=== PATIENT | male | born 1935 | race Caucasian/White ===

== ENCOUNTER 2021-10-20 13:23 | Inpatient (IN) ==
[2021-10-20] MEDS ORDERED: Vancomycin 1,000 MG VIAL IVPB ONE (15:36)
[2021-10-20] MEDS ORDERED: Piperacillin/Tazobactam 3.375 GM in 0.9 % Sodium Chloride Mini Bag 100 ML IVPB ONE (15:43)
[2021-10-20] MEDS ORDERED: Vancomycin 1,500 MG/265 ML IV.SOLN IVPB ONE (16:25)
[2021-10-20 16:39] LABS: Basophils % 0.2 %; Eosinophils % 0.1 %; Hematocrit 36.2 % (37.5-50.1); Hemoglobin 10.7 g/dL (12.9-16.9); Immature Granulocytes % 1.2 % (0-4); Lymphocytes # 0.4 K/mcL (0.6-4.6); Lymphocytes % 3.2 %; Mean Corpuscular HGB Conc 29.6 g/dL (31.6-35.5); Mean Corpuscular Hemoglobin 25.6 pg (28.0-33.3); Mean Corpuscular Volume 86.6 fL (83.0-100.0); Monocytes # 0.7 K/mcL (0.0-1.3); Monocytes % 6.1 %; Neutrophils # 10.4 K/mcL (1.6-8.9); Platelet Count 250 K/mcL (140-400); Red Blood Count 4.18 M/mcL (4.19-5.50); Red Cell Distribution Width 14.7 % (11.5-14.5); Segmented Neutrophils % 89.2 %; White Blood Count 11.6 K/mcL (4.3-11.1)
[2021-10-20 17:01] LABS: Albumin 3.2 g/dL (3.5-5.7); Bilirubin,Total 0.4 mg/dL (0.3-1.0); Calcium 8.5 mg/dL (8.6-10.3); Globulin 3.1 g/dL (2.4-3.5); Total Protein 6.3 g/dL (6.4-8.9)
[2021-10-20] MEDS ORDERED: *HR* OxyCODONE Immed Rel 5 MG TABLET PO PRN (18:12)
[2021-10-20] MEDS ORDERED: polyethylene glycoL 3350 17 GM POWD.PACK PO PRN (18:12)
[2021-10-20] MEDS ORDERED: Melatonin 3 MG TABLET PO PRN (18:12)
[2021-10-20] MEDS ORDERED: Ondansetron 4 MG/2 ML VIAL IVP PRN (18:13)
[2021-10-20] MEDS ORDERED: Naloxone 0.4 MG/ML INJ IVP PRN (18:13)
[2021-10-20 19:22] LABS: INR 2.4; Prothrombin Time 26.7 Seconds (9.4-12.1)
[2021-10-21] MEDS: Piperacillin/Tazobactam 3.375 GM in 0.9 % Sodium Chloride Mini Bag 100 ML IVPB SCH ×3 (01:03→16:56)
[2021-10-21 02:50] LABS: Hematocrit 31.2 % (37.5-50.1); Hemoglobin 9.5 g/dL (12.9-16.9); Mean Corpuscular HGB Conc 30.4 g/dL (31.6-35.5); Mean Corpuscular Hemoglobin 25.4 pg (28.0-33.3); Mean Corpuscular Volume 83.4 fL (83.0-100.0); Mean Platelet Volume 9.8 fL (9.4-12.4); Platelet Count 238 K/mcL (140-400); Red Blood Count 3.74 M/mcL (4.19-5.50); Red Cell Distribution Width 14.9 % (11.5-14.5); White Blood Count 10.4 K/mcL (4.3-11.1)
[2021-10-21 02:54] LABS: INR 2.4
[2021-10-21 03:04] LABS: Calcium 8.2 mg/dL (8.6-10.3); Magnesium 2.1 mg/dL (1.6-2.6)
[2021-10-21] MEDS: Aspirin 81 MG TAB.CHEW PO SCH (09:37)
[2021-10-21] MEDS: Finasteride 5 MG TABLET PO SCH (09:37)
[2021-10-21] MEDS: Furosemide 20 MG TABLET PO SCH (09:37)
[2021-10-21] MEDS: Acetaminophen 325 MG TABLET PO PRN (19:29)
[2021-10-22] MEDS: Piperacillin/Tazobactam 3.375 GM in 0.9 % Sodium Chloride Mini Bag 100 ML IVPB SCH ×4 (00:04→23:20)
[2021-10-22 06:06] LABS: Hematocrit 30.7 % (37.5-50.1); Mean Corpuscular HGB Conc 29.3 g/dL (31.6-35.5); Mean Corpuscular Hemoglobin 25.1 pg (28.0-33.3); Mean Corpuscular Volume 85.8 fL (83.0-100.0); Mean Platelet Volume 10.2 fL (9.4-12.4); Platelet Count 206 K/mcL (140-400); Red Blood Count 3.58 M/mcL (4.19-5.50); Red Cell Distribution Width 14.8 % (11.5-14.5); White Blood Count 8.1 K/mcL (4.3-11.1)
[2021-10-22 06:19] LABS: INR 2.1; Prothrombin Time 23.4 Seconds (9.4-12.1)
[2021-10-22 06:27] LABS: Calcium 8.3 mg/dL (8.6-10.3)
[2021-10-22] MEDS: Acetaminophen 325 MG TABLET PO PRN ×2 (08:44→17:53)
[2021-10-22] MEDS: Finasteride 5 MG TABLET PO SCH (08:45)
[2021-10-22] MEDS: Furosemide 20 MG TABLET PO SCH (08:45)
[2021-10-22] MEDS: Aspirin 81 MG TAB.CHEW PO SCH (08:45)
[2021-10-22] MEDS ORDERED: *HR* Heparin 5,000 UNIT/ML VIAL IVP PRN ×4 (08:52→12:02)
[2021-10-22] MEDS ORDERED: Heparin 25,000UNIT/250ML 1/2NS 25,000 UNIT/250 ML IV.SOLN IVC SCH (09:00)
[2021-10-22 09:10] LABS: A.calcoaceticus-baumannii cplx Not Detected (Not Detect); Bacteroides fragilis by PCR Not Detected (Not Detect); Enterobacter cloacae Cmplx PCR Not Detected (Not Detect); Enterococcus faecalis by PCR Not Detected (Not Detect); Enterococcus faecium by PCR Not Detected (Not Detect); Staph epidermidis by PCR DETECTED (Not Detect); Staph lugdunensis by PCR Not Detected (Not Detect); Staphylococcus aureus by PCR Not Detected (Not Detect); Streptococcus agalactiae(B)PCR Not Detected (Not Detect); Streptococcus by PCR Not Detected (Not Detect); Streptococcus pneumoniae PCR Not Detected (Not Detect); Streptococcus pyogenes (A) PCR Not Detected (Not Detect); mecA/C Methicillin-Resist Gene Not Detected (Not Detect)
[2021-10-22 09:11] LABS: Candida albicans by PCR Not Detected (Not Detect); Candida auris by PCR Not Detected (Not Detect); Candida glabrata by PCR Not Detected (Not Detect); Candida krusei by PCR Not Detected (Not Detect); Candida parapsilosis by PCR Not Detected (Not Detect); Candida tropicalis by PCR Not Detected (Not Detect); Crypto. neoformans/gattii PCR Not Detected (Not Detect); Enterobacterales by PCR Not Detected (Not Detect); Escherichia coli by PCR Not Detected (Not Detect); Klebs. pneumoniae group by PCR Not Detected (Not Detect); Klebsiella aerogenes by PCR Not Detected (Not Detect); Klebsiella oxytoca by PCR Not Detected (Not Detect); Proteus by PCR Not Detected (Not Detect); Pseudomonas aeruginosa by PCR Not Detected (Not Detect); Salmonella species by PCR Not Detected (Not Detect); Serratia marcescens by PCR Not Detected (Not Detect); Stenotrophomonas maltophilia Not Detected (Not Detect)
[2021-10-22] MEDS ORDERED: Lidocaine -MPF 2% 2 ML VIAL ONE (10:01)
[2021-10-22] MEDS ORDERED: *HR* Propofol 200 MG/20 ML VIAL IVP ONE (10:01)
[2021-10-22] MEDS ORDERED: *HR* FentaNYL (PF) 100 MCG/2 ML VIAL IVP PRN ×2 (10:22→12:02)
[2021-10-22] MEDS ORDERED: polyethylene glycoL 3350 17 GM POWD.PACK PO PRN (12:02)
[2021-10-22] MEDS ORDERED: Naloxone 0.4 MG/ML INJ IVP PRN (12:02)
[2021-10-22] MEDS ORDERED: Melatonin 3 MG TABLET PO PRN (12:02)
[2021-10-22] MEDS ORDERED: Ondansetron 4 MG/2 ML VIAL IVP PRN (12:02)
[2021-10-22 13:25] LABS: Prothrombin Time 21.9 Seconds (9.4-12.1)
[2021-10-22 13:28] LABS: Heparin anti-factor XA UFH < 0.04 IU/mL (0.30-0.70)
[2021-10-22] MEDS: Heparin 25,000UNIT/250ML 1/2NS 25,000 UNIT/250 ML IV.SOLN IVC SCH (13:55)
[2021-10-22] MEDS ORDERED: *HR* Warfarin 2.5 MG TABLET PO ONE (18:00)
[2021-10-22] MEDS ORDERED: Warfarin perPT PO PRN (18:00)
[2021-10-22] MEDS ORDERED: Vancomycin 1,250 MG/262.5 ML IV.SOLN IVPB ONE (18:30)
[2021-10-23] MEDS: Acetaminophen 325 MG TABLET PO PRN (00:14)
[2021-10-23 04:38] LABS: Hematocrit 28.8 % (37.5-50.1); Hemoglobin 8.5 g/dL (12.9-16.9); Mean Corpuscular HGB Conc 29.5 g/dL (31.6-35.5); Mean Corpuscular Hemoglobin 25.1 pg (28.0-33.3); Mean Corpuscular Volume 85.2 fL (83.0-100.0); Mean Platelet Volume 10.6 fL (9.4-12.4); Platelet Count 197 K/mcL (140-400); Red Blood Count 3.38 M/mcL (4.19-5.50); White Blood Count 8.8 K/mcL (4.3-11.1)
[2021-10-23 04:43] LABS: Calcium 7.8 mg/dL (8.6-10.3); Potassium 3.9 mEq/L (3.5-5.1)
[2021-10-23 04:46] LABS: Prothrombin Time 22.4 Seconds (9.4-12.1)
[2021-10-23] MEDS: Finasteride 5 MG TABLET PO SCH (09:48)
[2021-10-23] MEDS: Furosemide 20 MG TABLET PO SCH (09:49)
[2021-10-23] MEDS: Aspirin 81 MG TAB.CHEW PO SCH (09:49)
[2021-10-23] MEDS: Piperacillin/Tazobactam 3.375 GM in 0.9 % Sodium Chloride Mini Bag 100 ML IVPB SCH ×2 (09:50→17:24)
[2021-10-23] MEDS: Heparin 25,000UNIT/250ML 1/2NS 25,000 UNIT/250 ML IV.SOLN IVC SCH ×3 (12:09→18:28)
[2021-10-23] MEDS ORDERED: *HR* Warfarin 3 MG TABLET PO ONE (18:00)
[2021-10-23] MEDS ORDERED: Vancomycin 1,250 MG/262.5 ML IV.SOLN IVPB ONE (18:00)
[2021-10-24] MEDS: Piperacillin/Tazobactam 3.375 GM in 0.9 % Sodium Chloride Mini Bag 100 ML IVPB SCH (00:15)
[2021-10-24 05:17] LABS: INR 2.1; Prothrombin Time 23.4 Seconds (9.4-12.1)
[2021-10-24] MEDS: Aspirin 81 MG TAB.CHEW PO SCH (09:26)
[2021-10-24] MEDS: Furosemide 20 MG TABLET PO SCH (09:26)
[2021-10-24] MEDS: Finasteride 5 MG TABLET PO SCH (09:26)
[2021-10-24] MEDS: ceFAZolin 2,000 MG in 0.9 % Sodium Chloride 100 ML IVPB SCH ×3 (09:27→23:52)
[2021-10-24] MEDS: Heparin 25,000UNIT/250ML 1/2NS 25,000 UNIT/250 ML IV.SOLN IVC SCH (16:19)
[2021-10-24] MEDS ORDERED: *HR* Warfarin 3 MG TABLET PO ONE (18:00)
[2021-10-25 05:28] LABS: Hematocrit 27.9 % (37.5-50.1); Hemoglobin 8.2 g/dL (12.9-16.9); Mean Corpuscular HGB Conc 29.4 g/dL (31.6-35.5); Mean Corpuscular Volume 85.1 fL (83.0-100.0); Mean Platelet Volume 10.2 fL (9.4-12.4); Platelet Count 182 K/mcL (140-400); Red Blood Count 3.28 M/mcL (4.19-5.50); Red Cell Distribution Width 15.1 % (11.5-14.5); White Blood Count 7.1 K/mcL (4.3-11.1)
[2021-10-25 05:36] LABS: INR 2.3; Prothrombin Time 25.2 Seconds (9.4-12.1)
[2021-10-25 05:48] LABS: Calcium 7.9 mg/dL (8.6-10.3); Potassium 3.4 mEq/L (3.5-5.1)
[2021-10-25] MEDS: Aspirin 81 MG TAB.CHEW PO SCH (09:15)
[2021-10-25] MEDS: ceFAZolin 2,000 MG in 0.9 % Sodium Chloride 100 ML IVPB SCH (09:15)
[2021-10-25] MEDS: Furosemide 20 MG TABLET PO SCH (09:15)
[2021-10-25] MEDS: Finasteride 5 MG TABLET PO SCH (09:16)
[2021-10-25] MEDS ORDERED: *HR* Warfarin 3 MG TABLET PO ONE (18:00)
[2021-10-25] MEDS: CeFAZolin 2,000 MG/120 ML BAG IVPB SCH (21:09)
[2021-10-26 05:27] LABS: Prothrombin Time 22.2 Seconds (9.4-12.1)
[2021-10-26] MEDS: Aspirin 81 MG TAB.CHEW PO SCH (09:20)
[2021-10-26] MEDS: Finasteride 5 MG TABLET PO SCH (09:20)
[2021-10-26] MEDS: Furosemide 20 MG TABLET PO SCH (09:20)
[2021-10-26] MEDS: CeFAZolin 2,000 MG/120 ML BAG IVPB SCH ×2 (09:21→20:09)
[2021-10-26] MEDS ORDERED: *HR* Warfarin 5 MG TABLET PO ONE (18:00)
[2021-10-27 03:36] LABS: Hematocrit 27.1 % (37.5-50.1); Hemoglobin 7.9 g/dL (12.9-16.9); Mean Corpuscular HGB Conc 29.2 g/dL (31.6-35.5); Mean Corpuscular Hemoglobin 24.8 pg (28.0-33.3); Mean Platelet Volume 10.5 fL (9.4-12.4); Platelet Count 176 K/mcL (140-400); Red Blood Count 3.19 M/mcL (4.19-5.50); White Blood Count 7.8 K/mcL (4.3-11.1)
[2021-10-27 03:44] LABS: INR 2.2
[2021-10-27 03:57] LABS: BUN/Creatinine Ratio 17 (6-26); Blood Urea Nitrogen 21 mg/dL (8-23); Calcium 7.9 mg/dL (8.6-10.3); Carbon Dioxide 27 mEq/L (23-29); Chloride 105 mEq/L (98-107); Glucose 115 mg/dL (70-105); Osmolality,Calculated 292 (280-300); Potassium 3.6 mEq/L (3.5-5.1); Sodium 139 mEq/L (136-145); eGFR For African Americans > 60 (> 60); eGFR For Non-African Americans 54 (> 60)
[2021-10-27] MEDS: Finasteride 5 MG TABLET PO SCH (09:17)
[2021-10-27] MEDS: Aspirin 81 MG TAB.CHEW PO SCH (09:17)
[2021-10-27] MEDS: Furosemide 20 MG TABLET PO SCH (09:17)
[2021-10-27] MEDS ORDERED: *HR* Midazolam HCl 2 MG/2 ML VIAL ONE (09:57)
[2021-10-27] MEDS ORDERED: IOPAMIDOL ONE (09:58)
[2021-10-27] MEDS ORDERED: *HR* Heparin 10,000 UNIT/10 ML VIAL ONE (09:58)
[2021-10-27] MEDS ORDERED: 0.9 % Sodium Chloride 2,000 ML ONE (09:58)
[2021-10-27] MEDS ORDERED: Heparin 1,000 UNITS/500 mL 500 ML ONE (09:58)
[2021-10-27] MEDS ORDERED: Perflutren Lipid Microsphere 1.3 ML in 0.9 % Sodium Chloride 8.7 ML IVP PRN (11:00)
[2021-10-27] MEDS: CeFAZolin 2,000 MG/120 ML BAG IVPB SCH ×2 (11:57→20:33)
[2021-10-27] MEDS ORDERED: *HR* Warfarin 5 MG TABLET PO ONE (18:00)
[2021-10-28 06:01] LABS: Red Blood Count 3.43 M/mcL (4.19-5.50); White Blood Count 7.7 K/mcL (4.3-11.1)
[2021-10-28 06:02] LABS: Hematocrit 29.7 % (37.5-50.1); Hemoglobin 8.7 g/dL (12.9-16.9); Mean Corpuscular HGB Conc 29.3 g/dL (31.6-35.5); Mean Corpuscular Hemoglobin 25.4 pg (28.0-33.3); Mean Corpuscular Volume 86.6 fL (83.0-100.0); Mean Platelet Volume 9.8 fL (9.4-12.4); Platelet Count 174 K/mcL (140-400); Red Cell Distribution Width 15.5 % (11.5-14.5)
[2021-10-28 06:04] LABS: INR 2.5; Prothrombin Time 27.3 Seconds (9.4-12.1)
[2021-10-28 07:07] LABS: BUN/Creatinine Ratio 18 (6-26); Blood Urea Nitrogen 23 mg/dL (8-23); Carbon Dioxide 26 mEq/L (23-29); Chloride 102 mEq/L (98-107); Glucose 148 mg/dL (70-105); Osmolality,Calculated 288 (280-300); Potassium 3.7 mEq/L (3.5-5.1); Sodium 136 mEq/L (136-145); eGFR For African Americans > 60 (> 60); eGFR For Non-African Americans 52 (> 60)
[2021-10-28] MEDS: Furosemide 20 MG TABLET PO SCH (09:29)
[2021-10-28] MEDS: Aspirin 81 MG TAB.CHEW PO SCH (09:29)
[2021-10-28] MEDS: Finasteride 5 MG TABLET PO SCH (09:29)
[2021-10-28] MEDS: CeFAZolin 2,000 MG/120 ML BAG IVPB SCH ×2 (09:36→21:17)
[2021-10-28] MEDS ORDERED: *HR* Warfarin 4 MG TABLET PO ONE (18:00)
[2021-10-28] MEDS: cilostazoL 100 MG TABLET PO SCH (21:16)
[2021-10-29 04:21] LABS: Hematocrit 27.7 % (37.5-50.1); Hemoglobin 8.3 g/dL (12.9-16.9); Mean Corpuscular Hemoglobin 25.5 pg (28.0-33.3); Mean Platelet Volume 10.5 fL (9.4-12.4); Platelet Count 180 K/mcL (140-400); Red Blood Count 3.26 M/mcL (4.19-5.50); Red Cell Distribution Width 15.3 % (11.5-14.5); White Blood Count 7.7 K/mcL (4.3-11.1)
[2021-10-29 04:28] LABS: INR 2.9; Prothrombin Time 31.7 Seconds (9.4-12.1)
[2021-10-29 04:34] LABS: BUN/Creatinine Ratio 19 (6-26); Blood Urea Nitrogen 25 mg/dL (8-23); Carbon Dioxide 27 mEq/L (23-29); Chloride 103 mEq/L (98-107); Glucose 136 mg/dL (70-105); Osmolality,Calculated 290 (280-300); Potassium 3.5 mEq/L (3.5-5.1); Sodium 137 mEq/L (136-145); eGFR For African Americans > 60 (> 60); eGFR For Non-African Americans 50 (> 60)
[2021-10-29] MEDS: cilostazoL 100 MG TABLET PO SCH ×2 (07:38→21:44)
[2021-10-29] MEDS: Finasteride 5 MG TABLET PO SCH (07:38)
[2021-10-29] MEDS: Aspirin 81 MG TAB.CHEW PO SCH (07:38)
[2021-10-29] MEDS: Acetaminophen 325 MG TABLET PO PRN (07:38)
[2021-10-29] MEDS: Furosemide 20 MG TABLET PO SCH (07:38)
[2021-10-29] MEDS: CeFAZolin 2,000 MG/120 ML BAG IVPB SCH ×2 (09:53→21:45)
[2021-10-29] MEDS ORDERED: Lidocaine -MPF 2% 2 ML VIAL ONE (12:50)
[2021-10-29] MEDS ORDERED: *HR* Propofol 200 MG/20 ML VIAL IVP ONE ×2 (12:50)
[2021-10-29] MEDS ORDERED: Melatonin 3 MG TABLET PO PRN (14:28)
[2021-10-29] MEDS ORDERED: polyethylene glycoL 3350 17 GM POWD.PACK PO PRN (14:28)
[2021-10-29] MEDS ORDERED: Ondansetron 4 MG/2 ML VIAL IVP PRN (14:28)
[2021-10-29] MEDS ORDERED: Naloxone 0.4 MG/ML INJ IVP PRN (14:28)
[2021-10-29] MEDS ORDERED: Perflutren Lipid Microsphere 1.3 ML in 0.9 % Sodium Chloride 8.7 ML IVP PRN (14:28)
[2021-10-29] MEDS ORDERED: Warfarin perPT PO PRN (18:00)
[2021-10-29] MEDS ORDERED: *HR* Warfarin 3 MG TABLET PO ONE ×2 (18:00)
[2021-10-30 05:56] LABS: Basophils % 0.4 %; Eosinophils # 0.2 K/mcL (0.0-0.6); Eosinophils % 3.2 %; Hematocrit 25.9 % (37.5-50.1); Hemoglobin 7.8 g/dL (12.9-16.9); Immature Granulocytes % 0.9 % (0-4); Lymphocytes # 0.5 K/mcL (0.6-4.6); Lymphocytes % 6.9 %; Mean Corpuscular HGB Conc 30.1 g/dL (31.6-35.5); Mean Corpuscular Hemoglobin 25.5 pg (28.0-33.3); Mean Corpuscular Volume 84.6 fL (83.0-100.0); Monocytes # 0.6 K/mcL (0.0-1.3); Monocytes % 8.5 %; Neutrophils # 5.5 K/mcL (1.6-8.9); Platelet Count 155 K/mcL (140-400); Red Blood Count 3.06 M/mcL (4.19-5.50); Red Cell Distribution Width 15.2 % (11.5-14.5); Segmented Neutrophils % 80.1 %; White Blood Count 6.8 K/mcL (4.3-11.1)
[2021-10-30 06:03] LABS: INR 3.5; Prothrombin Time 38.9 Seconds (9.4-12.1)
[2021-10-30 06:22] LABS: BUN/Creatinine Ratio 16 (6-26); Blood Urea Nitrogen 21 mg/dL (8-23); Carbon Dioxide 30 mEq/L (23-29); Chloride 103 mEq/L (98-107); Glucose 88 mg/dL (70-105); Osmolality,Calculated 286 (280-300); Potassium 3.8 mEq/L (3.5-5.1); Sodium 137 mEq/L (136-145); eGFR For African Americans > 60 (> 60); eGFR For Non-African Americans 53 (> 60)
[2021-10-30] MEDS ORDERED: Furosemide 20 MG TABLET PO SCH (09:00)
[2021-10-30] MEDS: Aspirin 81 MG TAB.CHEW PO SCH (11:05)
[2021-10-30] MEDS: Finasteride 5 MG TABLET PO SCH (11:05)
[2021-10-30] MEDS: CeFAZolin 2,000 MG/120 ML BAG IVPB SCH ×2 (11:06→20:24)
[2021-10-30] MEDS: cilostazoL 100 MG TABLET PO SCH ×2 (11:06→20:19)
[2021-10-30] MEDS ORDERED: *HR* Warfarin 1 MG TABLET PO ONE (18:00)
[2021-10-31 02:49] LABS: Basophils % 0.3 %; Eosinophils # 0.2 K/mcL (0.0-0.6); Hematocrit 25.7 % (37.5-50.1); Hemoglobin 7.6 g/dL (12.9-16.9); Immature Granulocytes % 0.9 % (0-4); Lymphocytes # 0.5 K/mcL (0.6-4.6); Lymphocytes % 7.9 %; Mean Corpuscular HGB Conc 29.6 g/dL (31.6-35.5); Mean Corpuscular Hemoglobin 25.2 pg (28.0-33.3); Mean Corpuscular Volume 85.1 fL (83.0-100.0); Mean Platelet Volume 9.5 fL (9.4-12.4); Monocytes # 0.6 K/mcL (0.0-1.3); Monocytes % 8.6 %; Neutrophils # 5.1 K/mcL (1.6-8.9); Platelet Count 161 K/mcL (140-400); Red Blood Count 3.02 M/mcL (4.19-5.50); Red Cell Distribution Width 15.1 % (11.5-14.5); Segmented Neutrophils % 79.3 %; White Blood Count 6.4 K/mcL (4.3-11.1)
[2021-10-31 02:57] LABS: INR 3.3; Prothrombin Time 36.2 Seconds (9.4-12.1)
[2021-10-31 03:34] LABS: Folate 11.5 ng/mL (3.0-16.0)
[2021-10-31 03:47] LABS: % Iron Saturation 8 % (20-55); Alanine Aminotransferase < 3 Units/L (7-52); Albumin 2.8 g/dL (3.5-5.7); Albumin/Globulin Ratio 1.1 (1.1-2.2); Alkaline Phosphatase 54 Units/L (34-104); Aspartate Amino Transferase 9 Units/L (13-39); BUN/Creatinine Ratio 15 (6-26); Bilirubin,Indirect 0.3 mg/dL (0.0-1.0); Bilirubin,Total 0.3 mg/dL (0.3-1.0); Blood Urea Nitrogen 25 mg/dL (8-23); Carbon Dioxide 28 mEq/L (23-29); Chloride 104 mEq/L (98-107); Ferritin 213 ng/mL (20-250); Globulin 2.6 g/dL (2.4-3.5); Glucose 129 mg/dL (70-105); Iron 16 mcg/dL (65-175); Osmolality,Calculated 294 (280-300); Potassium 3.9 mEq/L (3.5-5.1); Sodium 139 mEq/L (136-145); Total Protein 5.4 g/dL (6.4-8.9); Transferrin 150 mg/dL (203-362); eGFR For African Americans 49 (> 60); eGFR For Non-African Americans 40 (> 60)
[2021-10-31] MEDS ORDERED: Iron Sucrose Complex 200 MG in 0.9 % Sodium Chloride 100 ML IVPB ONE (07:35)
[2021-10-31] MEDS ORDERED: Cyanocobalamin (B-12) 1,000 MCG/ML VIAL SQ ONE (07:35)
[2021-10-31] MEDS: Finasteride 5 MG TABLET PO SCH (11:42)
[2021-10-31] MEDS: cilostazoL 100 MG TABLET PO SCH ×2 (11:42→20:35)
[2021-10-31] MEDS: Aspirin 81 MG TAB.CHEW PO SCH (11:42)
[2021-10-31] MEDS: CeFAZolin 2,000 MG/120 ML BAG IVPB SCH ×2 (12:55→20:37)
[2021-10-31] MEDS: 0.9 % Sodium Chloride 1,000 ML IVC SCH (17:22)
[2021-10-31] MEDS ORDERED: *HR* Warfarin 2.5 MG TABLET PO ONE (18:00)
[2021-11-01] MEDS: 0.9 % Sodium Chloride 1,000 ML IVC SCH (03:36)
[2021-11-01 05:15] LABS: Basophils % 0.5 %; Eosinophils # 0.2 K/mcL (0.0-0.6); Eosinophils % 3.4 %; Hematocrit 25.1 % (37.5-50.1); Hemoglobin 7.3 g/dL (12.9-16.9); Immature Granulocytes % 1.2 % (0-4); Lymphocytes # 0.4 K/mcL (0.6-4.6); Lymphocytes % 7.5 %; Mean Corpuscular HGB Conc 29.1 g/dL (31.6-35.5); Mean Corpuscular Hemoglobin 25.1 pg (28.0-33.3); Mean Corpuscular Volume 86.3 fL (83.0-100.0); Mean Platelet Volume 9.5 fL (9.4-12.4); Monocytes # 0.6 K/mcL (0.0-1.3); Monocytes % 9.4 %; Neutrophils # 4.6 K/mcL (1.6-8.9); Platelet Count 164 K/mcL (140-400); Red Blood Count 2.91 M/mcL (4.19-5.50); Red Cell Distribution Width 15.2 % (11.5-14.5); White Blood Count 5.8 K/mcL (4.3-11.1)
[2021-11-01 05:21] LABS: INR 2.9; Prothrombin Time 32.1 Seconds (9.4-12.1)
[2021-11-01 05:34] LABS: Calcium 7.7 mg/dL (8.6-10.3); Magnesium 1.9 mg/dL (1.6-2.6); Potassium 3.6 mEq/L (3.5-5.1)
[2021-11-01] MEDS: CeFAZolin 2,000 MG/120 ML BAG IVPB SCH ×2 (09:15→20:19)
[2021-11-01] MEDS: cilostazoL 100 MG TABLET PO SCH ×2 (09:16→20:21)
[2021-11-01] MEDS: Finasteride 5 MG TABLET PO SCH (09:16)
[2021-11-01] MEDS: Aspirin 81 MG TAB.CHEW PO SCH (09:17)
[2021-11-01] MEDS: Acetaminophen 325 MG TABLET PO PRN (09:20)
[2021-11-01] MEDS ORDERED: Morphine Sulfate 2 MG/ML SYRINGE IVP ONE (17:11)
[2021-11-01] MEDS ORDERED: *HR* Warfarin 2.5 MG TABLET PO ONE (18:00)
[2021-11-02 05:42] LABS: Basophils % 0.3 %; Eosinophils # 0.3 K/mcL (0.0-0.6); Eosinophils % 4.2 %; Hematocrit 25.6 % (37.5-50.1); Hemoglobin 7.5 g/dL (12.9-16.9); Immature Granulocytes % 1.4 % (0-4); Lymphocytes # 0.5 K/mcL (0.6-4.6); Lymphocytes % 8.3 %; Mean Corpuscular HGB Conc 29.3 g/dL (31.6-35.5); Mean Corpuscular Hemoglobin 25.7 pg (28.0-33.3); Mean Corpuscular Volume 87.7 fL (83.0-100.0); Mean Platelet Volume 9.6 fL (9.4-12.4); Monocytes # 0.6 K/mcL (0.0-1.3); Monocytes % 8.9 %; Neutrophils # 4.9 K/mcL (1.6-8.9); Platelet Count 173 K/mcL (140-400); Red Blood Count 2.92 M/mcL (4.19-5.50); Red Cell Distribution Width 15.2 % (11.5-14.5); Segmented Neutrophils % 76.9 %; White Blood Count 6.4 K/mcL (4.3-11.1)
[2021-11-02 05:49] LABS: INR 2.8; Prothrombin Time 31.2 Seconds (9.4-12.1)
[2021-11-02 06:02] LABS: BUN/Creatinine Ratio 13 (6-26); Blood Urea Nitrogen 18 mg/dL (8-23); Calcium 7.8 mg/dL (8.6-10.3); Carbon Dioxide 27 mEq/L (23-29); Chloride 108 mEq/L (98-107); Glucose 119 mg/dL (70-105); Magnesium 1.9 mg/dL (1.6-2.6); Osmolality,Calculated 291 (280-300); Potassium 3.6 mEq/L (3.5-5.1); Sodium 139 mEq/L (136-145); eGFR For African Americans > 60 (> 60); eGFR For Non-African Americans 50 (> 60)
[2021-11-02] MEDS: CeFAZolin 2,000 MG/120 ML BAG IVPB SCH ×2 (10:06→21:14)
[2021-11-02] MEDS: Finasteride 5 MG TABLET PO SCH (10:07)
[2021-11-02] MEDS: Aspirin 81 MG TAB.CHEW PO SCH (10:07)
[2021-11-02] MEDS: cilostazoL 100 MG TABLET PO SCH ×2 (10:08→21:12)
[2021-11-02] MEDS ORDERED: *HR* Warfarin 3 MG TABLET PO ONE (18:00)
[2021-11-03 03:50] LABS: Basophils % 0.5 %; Hematocrit 26.2 % (37.5-50.1)
[2021-11-03 03:52] LABS: Eosinophils # 0.3 K/mcL (0.0-0.6); Eosinophils % 4.1 %; Hemoglobin 7.6 g/dL (12.9-16.9); Immature Granulocytes % 1.1 % (0-4); Lymphocytes # 0.5 K/mcL (0.6-4.6); Lymphocytes % 7.8 %; Mean Corpuscular Hemoglobin 25.2 pg (28.0-33.3); Mean Platelet Volume 9.7 fL (9.4-12.4); Monocytes # 0.5 K/mcL (0.0-1.3); Monocytes % 8.6 %; Neutrophils # 4.9 K/mcL (1.6-8.9); Platelet Count 183 K/mcL (140-400); Red Blood Count 3.01 M/mcL (4.19-5.50); Red Cell Distribution Width 15.2 % (11.5-14.5); Segmented Neutrophils % 77.9 %; White Blood Count 6.3 K/mcL (4.3-11.1)
[2021-11-03 04:03] LABS: INR 2.5
[2021-11-03 04:04] LABS: BUN/Creatinine Ratio 13 (6-26); Blood Urea Nitrogen 16 mg/dL (8-23); Calcium 7.8 mg/dL (8.6-10.3); Carbon Dioxide 27 mEq/L (23-29); Chloride 106 mEq/L (98-107); Glucose 140 mg/dL (70-105); Magnesium 1.7 mg/dL (1.6-2.6); Osmolality,Calculated 289 (280-300); Potassium 3.7 mEq/L (3.5-5.1); Sodium 138 mEq/L (136-145); eGFR For African Americans > 60 (> 60); eGFR For Non-African Americans 54 (> 60)
[2021-11-03 04:40] LABS: Hypochromasia Present (Not Present); Platelet Estimate Normal (Normal)
[2021-11-03 04:41] LABS: Poikilocytosis 1+ (Not Present)
[2021-11-03] MEDS: Finasteride 5 MG TABLET PO SCH (09:07)
[2021-11-03] MEDS: Aspirin 81 MG TAB.CHEW PO SCH (09:07)
[2021-11-03] MEDS: CeFAZolin 2,000 MG/120 ML BAG IVPB SCH (09:08)
[2021-11-03] MEDS: cilostazoL 100 MG TABLET PO SCH (09:08)
[2021-11-03 11:28] VITALS: BP 107/62; PULSE 70; TEMP 98; O2SAT 93
[2021-11-03] MEDS: Acetaminophen 325 MG TABLET PO PRN (11:31)
[2021-11-03 13:22] LABS: Influenza A PCR Negative (Negative); Influenza B PCR Negative (Negative); Resp. Syncytial Virus PCR Negative (Negative); SARS-CoV-2 by PCR (In House) Negative (Negative)
[2021-11-03] MEDS ORDERED: *HR* Warfarin 4 MG TABLET PO ONE (18:00)
== END 2021-11-03 18:05 | DRG 478 ==
LOC: EMEROOARM 13:23 → 4WAOSI 13:23 → SUATTDRO 17:32 → 4WAOSI 18:22 → SUATTDRO 10-21 08:23
PROVIDERS: ADMIT Internal Medicine; ATTEND Pharmacist

== ENCOUNTER 2022-02-07 15:25 | Inpatient (IN) ==
[2022-02-07] MEDS ORDERED: Piperacillin/Tazobactam 3.375 GM in 0.9 % Sodium Chloride Mini Bag 100 ML IVPB ONE (16:16)
[2022-02-07 16:43] LABS: Basophils # 0.1 K/mcL (0.0-0.2); Basophils % 0.7 %; Eosinophils # 0.3 K/mcL (0.0-0.6); Hematocrit 35.9 % (37.5-50.1); Hemoglobin 10.7 g/dL (12.9-16.9); Immature Granulocytes % 0.6 % (0-4); Lymphocytes # 0.6 K/mcL (0.6-4.6); Lymphocytes % 5.8 %; Mean Corpuscular HGB Conc 29.8 g/dL (31.6-35.5); Mean Corpuscular Hemoglobin 25.5 pg (28.0-33.3); Mean Corpuscular Volume 85.7 fL (83.0-100.0); Mean Platelet Volume 9.4 fL (9.4-12.4); Monocytes # 0.9 K/mcL (0.0-1.3); Monocytes % 8.5 %; Neutrophils # 8.4 K/mcL (1.6-8.9); Platelet Count 250 K/mcL (140-400); Red Blood Count 4.19 M/mcL (4.19-5.50); Red Cell Distribution Width 14.3 % (11.5-14.5); Segmented Neutrophils % 81.4 %; White Blood Count 10.3 K/mcL (4.3-11.1)
[2022-02-07 17:01] LABS: Calcium 8.5 mg/dL (8.6-10.3)
[2022-02-07] MEDS ORDERED: 0.9 % Sodium Chloride 1,000 ML IVC ONE (17:10)
[2022-02-07 17:18] LABS: INR 3.4; Prothrombin Time 37.9 Seconds (9.4-12.1)
[2022-02-07] MEDS ORDERED: *HR* OxyCODONE Immed Rel 5 MG TABLET PO PRN (17:56)
[2022-02-07] MEDS ORDERED: Ondansetron ODT 4 MG TAB.RAPDIS SL PRN (17:56)
[2022-02-07] MEDS ORDERED: Acetaminophen 325 MG TABLET PO PRN (17:56)
[2022-02-07] MEDS ORDERED: Naloxone 0.4 MG/ML INJ IVP PRN (17:56)
[2022-02-07] MEDS ORDERED: *HR* Phytonadione 5 MG TABLET PO ONE (20:00)
[2022-02-08] MEDS: Piperacillin/Tazobactam 3.375 GM in 0.9 % Sodium Chloride Mini Bag 100 ML IVPB SCH ×4 (00:01→23:42)
[2022-02-08 05:33] LABS: Basophils # 0.1 K/mcL (0.0-0.2); Basophils % 0.7 %; Eosinophils # 0.4 K/mcL (0.0-0.6); Eosinophils % 4.6 %; Hematocrit 30.7 % (37.5-50.1); Immature Granulocytes % 0.7 % (0-4); Lymphocytes # 0.6 K/mcL (0.6-4.6); Lymphocytes % 6.2 %; Mean Corpuscular HGB Conc 29.6 g/dL (31.6-35.5); Mean Corpuscular Hemoglobin 25.3 pg (28.0-33.3); Mean Corpuscular Volume 85.3 fL (83.0-100.0); Mean Platelet Volume 9.3 fL (9.4-12.4); Monocytes # 0.8 K/mcL (0.0-1.3); Monocytes % 8.5 %; Platelet Count 207 K/mcL (140-400); Red Cell Distribution Width 14.3 % (11.5-14.5); Segmented Neutrophils % 79.3 %; White Blood Count 8.8 K/mcL (4.3-11.1)
[2022-02-08 05:40] LABS: Prothrombin Time 33.7 Seconds (9.4-12.1)
[2022-02-08 05:46] LABS: Hemoglobin 9.1 g/dL (12.9-16.9)
[2022-02-08 06:06] LABS: Calcium 8.1 mg/dL (8.6-10.3); Potassium 3.7 mEq/L (3.5-5.1)
[2022-02-08 12:10] LABS: Estimated Average Glucose 131 mg/dl; Hemoglobin A1C 6.2 %
[2022-02-08] MEDS ORDERED: *HR* Phytonadione 5 MG TABLET PO ONE (12:41)
[2022-02-09 04:37] LABS: Basophils # 0.1 K/mcL (0.0-0.2); Basophils % 0.8 %; Eosinophils # 0.3 K/mcL (0.0-0.6); Eosinophils % 3.6 %; Hematocrit 30.9 % (37.5-50.1); Hemoglobin 9.3 g/dL (12.9-16.9); Immature Granulocytes % 0.5 % (0-4); Lymphocytes # 0.5 K/mcL (0.6-4.6); Lymphocytes % 5.9 %; Mean Corpuscular HGB Conc 30.1 g/dL (31.6-35.5); Mean Corpuscular Hemoglobin 25.5 pg (28.0-33.3); Mean Corpuscular Volume 84.9 fL (83.0-100.0); Mean Platelet Volume 9.7 fL (9.4-12.4); Monocytes # 0.9 K/mcL (0.0-1.3); Monocytes % 9.9 %; Neutrophils # 7.3 K/mcL (1.6-8.9); Platelet Count 218 K/mcL (140-400); Red Blood Count 3.64 M/mcL (4.19-5.50); Red Cell Distribution Width 14.1 % (11.5-14.5); Segmented Neutrophils % 79.3 %; White Blood Count 9.2 K/mcL (4.3-11.1)
[2022-02-09 04:41] LABS: INR 1.8; Prothrombin Time 19.8 Seconds (9.4-12.1)
[2022-02-09 04:58] LABS: Calcium 8.1 mg/dL (8.6-10.3); Potassium 3.8 mEq/L (3.5-5.1)
[2022-02-09] MEDS: Piperacillin/Tazobactam 3.375 GM in 0.9 % Sodium Chloride Mini Bag 100 ML IVPB SCH (08:23)
[2022-02-09] MEDS ORDERED: polyethylene glycoL 3350 17 GM POWD.PACK PO PRN (08:41)
[2022-02-09] MEDS ORDERED: Melatonin 3 MG TABLET PO PRN (08:41)
[2022-02-09] MEDS: metroNIDAZOLE 500 MG TABLET PO SCH ×2 (15:32→20:25)
[2022-02-09] MEDS: cefTRIAXone 2,000 MG in 0.9 % Sodium Chloride Mini Bag 100 ML IVPB SCH (15:33)
[2022-02-09] MEDS: QUEtiapine Fumarate 25 MG TABLET PO SCH (17:01)
[2022-02-09] MEDS: *HR* Enoxaparin 60 MG/0.6 ML SYRINGE SQ SCH (18:16)
[2022-02-10] MEDS: *HR* Enoxaparin 60 MG/0.6 ML SYRINGE SQ SCH ×2 (05:37→18:18)
[2022-02-10] MEDS: Furosemide 20 MG TABLET PO SCH (05:37)
[2022-02-10] MEDS: QUEtiapine Fumarate 25 MG TABLET PO SCH ×2 (05:37→18:18)
[2022-02-10] MEDS: Finasteride 5 MG TABLET PO SCH (05:37)
[2022-02-10] MEDS: Aspirin 81 MG TAB.CHEW PO SCH (05:37)
[2022-02-10 05:59] LABS: Basophils # 0.1 K/mcL (0.0-0.2); Basophils % 0.9 %; Eosinophils # 0.4 K/mcL (0.0-0.6); Eosinophils % 5.4 %; Hematocrit 33.6 % (37.5-50.1); Immature Granulocytes % 0.6 % (0-4); Lymphocytes # 0.5 K/mcL (0.6-4.6); Lymphocytes % 5.5 %; Mean Corpuscular HGB Conc 29.8 g/dL (31.6-35.5); Mean Corpuscular Hemoglobin 25.3 pg (28.0-33.3); Mean Corpuscular Volume 85.1 fL (83.0-100.0); Monocytes # 0.8 K/mcL (0.0-1.3); Monocytes % 9.4 %; Neutrophils # 6.4 K/mcL (1.6-8.9); Platelet Count 200 K/mcL (140-400); Red Blood Count 3.95 M/mcL (4.19-5.50); Segmented Neutrophils % 78.2 %; White Blood Count 8.2 K/mcL (4.3-11.1)
[2022-02-10 06:07] LABS: INR 1.3
[2022-02-10 06:21] LABS: Calcium 8.5 mg/dL (8.6-10.3); Potassium 4.3 mEq/L (3.5-5.1)
[2022-02-10] MEDS: metroNIDAZOLE 500 MG TABLET PO SCH ×3 (08:27→20:55)
[2022-02-10] MEDS: cefTRIAXone 2,000 MG in 0.9 % Sodium Chloride Mini Bag 100 ML IVPB SCH (15:39)
[2022-02-11 05:03] LABS: Basophils # 0.1 K/mcL (0.0-0.2); Basophils % 1.1 %; Eosinophils # 0.4 K/mcL (0.0-0.6); Eosinophils % 4.9 %; Hematocrit 31.1 % (37.5-50.1); Hemoglobin 9.3 g/dL (12.9-16.9); Immature Granulocytes % 0.5 % (0-4); Lymphocytes # 0.4 K/mcL (0.6-4.6); Lymphocytes % 5.8 %; Mean Corpuscular HGB Conc 29.9 g/dL (31.6-35.5); Mean Corpuscular Hemoglobin 25.4 pg (28.0-33.3); Mean Platelet Volume 10.1 fL (9.4-12.4); Monocytes # 0.7 K/mcL (0.0-1.3); Monocytes % 9.5 %; Neutrophils # 5.9 K/mcL (1.6-8.9); Platelet Count 202 K/mcL (140-400); Red Blood Count 3.66 M/mcL (4.19-5.50); Red Cell Distribution Width 14.2 % (11.5-14.5); Segmented Neutrophils % 78.2 %; White Blood Count 7.6 K/mcL (4.3-11.1)
[2022-02-11 05:19] LABS: INR 1.3; Prothrombin Time 14.6 Seconds (9.4-12.1)
[2022-02-11 05:37] LABS: Potassium 3.7 mEq/L (3.5-5.1)
[2022-02-11] MEDS: Furosemide 20 MG TABLET PO SCH (06:02)
[2022-02-11] MEDS: Aspirin 81 MG TAB.CHEW PO SCH (06:02)
[2022-02-11] MEDS: Finasteride 5 MG TABLET PO SCH (06:02)
[2022-02-11] MEDS: *HR* Enoxaparin 60 MG/0.6 ML SYRINGE SQ SCH ×2 (06:02→17:03)
[2022-02-11] MEDS: QUEtiapine Fumarate 25 MG TABLET PO SCH ×2 (06:02→16:42)
[2022-02-11] MEDS: metroNIDAZOLE 500 MG TABLET PO SCH ×2 (10:00→14:41)
[2022-02-11 11:35] VITALS: BP 113/67; PULSE 65; TEMP 97.6; O2SAT 95
[2022-02-11 14:10] LABS: Influenza A PCR Negative (Negative); Influenza B PCR Negative (Negative); Resp. Syncytial Virus PCR Negative (Negative)
[2022-02-11 14:14] LABS: SARS-CoV-2 by PCR (In House) Positive (Negative)
[2022-02-11] MEDS: cefTRIAXone 2,000 MG in 0.9 % Sodium Chloride Mini Bag 100 ML IVPB SCH (14:42)
== END 2022-02-11 17:47 | DRG 540 ==
LOC: 4WAOSI 15:25 → EMEROOARM 15:25 → SUATTDRO 18:05 → 4WAOSI 18:38 → SUATTDRO 02-08 13:56
PROVIDERS: ADMIT Hospitalist; ATTEND Hospitalist